=== PATIENT | female | born 1995 | race Two or more races ===

== ENCOUNTER 2017-06-25 19:18 | Emergency (ER) | payer MEDICAID ==
--- NOTE | 2017-06-25 20:09 | ER Document Report ---
ED Medical Screen (RME) - General TRAVEL OUTSIDE OF THE [place] IN LAST 30 DAYS: No <ANABELLA NAIR - Last Filed: 06/25/17 20:08> <QUINTEN ROMANO - Last Filed: 06/26/17 01:58> - General Chief Complaint: Vaginal Bleeding Stated Complaint: VAGINAL BLEEDING Time Seen by Provider: 06/25/17 20:02 Notes: Patient says she began what she believes is her. Today and put a tampon in. When she removed it, "there is something wrapped around the tampon" and she wants to know what it is. She has no symptoms. No fever. No abdominal pain. She is on control pills. She had her last regular cycle on May 02. She missed May, but this is not unusual for her while she is on the control pills. No other significant history. (ANABELLA NAIR) Patient is a 21-year-old female who presents emergency department complaining that she started her period and when she removed her tampon today she noticed a piece of tissue stuck around the tampon. patient admits that she recently had sexual intercourse with her boyfriend approximately 10 days ago and this was the first time since she had her daughter 9 months ago. She states that the tampon she is today was the first tampon she is used and she had an intercourse. Otherwise she denies any fever, chills, pelvic pain, discharge, vaginal irritation, vaginal pain. She denies any painful intercourse. She denies any nausea, vomiting, diarrhea, constipation. (QUINTEN ROMANO) - Related Data Allergies/Adverse Reactions: venom-honey bee [bee venom (honey bee)] Allergy (Verified 06/25/17 19:43) bee stings Allergy (Uncoded 06/25/17 19:49) Past Medical History - General Last Menstrual Period: 05-02-17 - Social History Chew tobacco use (# tins/day): No Frequency of alcohol use: None Drug Abuse: None Family history: None Renal/ Medical History: Denies: Hx Peritoneal Dialysis Past Surgical History: Reports: Hx Orthopedic Surgery - Immunizations Hx Diphtheria, Pertussis, Tetanus Vaccination: No History of Influenza Vaccine for 06/2017 - 11/2017 Season: No <ANABELLA NAIR - Last Filed: 06/25/17 20:08> Review of Systems - Review of Systems Constitutional: No symptoms reported Female Genitourinary: See HPI -: Yes All other systems reviewed and negative <QUINTEN ROMANO - Last Filed: 06/26/17 01:58> Physical Exam <ANABELLA NAIR - Last Filed: 06/25/17 20:08> <QUINTEN ROMANO - Last Filed: 06/26/17 01:58> - Vital signs Vitals: Temp Pulse Resp BP Pulse Ox 98.8 F 102 H 18 152/78 H 98 06/25/17 19:44 06/25/17 19:44 06/25/17 19:44 06/25/17 19:44 06/25/17 19:44 - Notes Notes: PHYSICAL EXAM GENERAL: Alert, interacts well. ABDOMEN: Soft, nondistended, nontender. No guarding, rebound, or rigidity.. Bowel sounds present in all 4 quadrants. FEMALE : tampon at the bedside shows evidence of Mucosal tissue measuring approximately 7 cm x 4 cm. Normal external exam. No evidence of lesions, lacerations, bruising or vesicles. Speculum exam normal cervix closed. No evidence of vaginal discharge with odor. No evidence of lesions. No vaginal bleeding. Bimanual exam normal no cervical motion tenderness. No adnexal mass or adnexal tenderness. EXTREMITIES: Moves all 4 extremities spontaneously. No edema, radial and dorsalis pedis pulses 2/4 bilaterally. No cyanosis. NEUROLOGICAL: Alert and oriented x4. Normal speech. PSYCH: Normal affect, normal mood. SKIN: Warm, dry, normal turgor. No rashes or lesions noted. (QUINTEN ROMANO) Course <ANABELLA NAIR - Last Filed: 06/25/17 20:08> <QUINTEN ROMANO - Last Filed: 06/26/17 01:58> - Re-evaluation Re-evalutation: 06/26/17 01:58 Patient is a 21-year-old female who is hemodynamically stable, no acute distress and afebrile. Presentation today is not concerning for any exsanguination, concerns for ectopic . Beta hCG was negative. Given the tissue is the main reason she came in today, she is only recently had vaginal penetration since her of her daughter it is possible this is tissue left over from her vaginal delivery urgently at this year. Patient educated on signs and symptoms indicating return to the emergency department otherwise to follow-up with her [employer] if she continues to find specimen like this on her tampons. (QUINTEN ROMANO) - Vital Signs Vital signs: Temp Pulse Resp BP Pulse Ox 98.3 F 86 16 125/74 98 06/25/17 21:19 06/25/17 21:19 06/25/17 21:19 06/25/17 21:19 06/25/17 21:19 Doctor's Discharge <ANABELLA NAIR - Last Filed: 06/25/17 20:08> <QUINTEN ROMANO - Last Filed: 06/26/17 01:58> - Discharge Clinical Impression: Vaginal bleeding Condition: Good Disposition: HOME, SELF-CARE Additional Instructions: VAGINAL BLEEDING: You are having an episode of abnormal bleeding. Causes of abnormal vaginal bleeding can include miscarriage or tubal , tumors such as cancer or benign fibroids, medication effects, or hormone imbalance. Testing can eliminate unsuspected , tumors, or infection as a cause. "Dysfunctional uterine bleeding" is due to hormone imbalance, and is especially common at times when the normal cycle is disturbed -- whether by recent , use of control pills or hormones, or impending menopause. If the bleeding is innocent, most commonly a short course of hormones is given to restore the uterus to normal. Sometimes, the normal menstrual cycle corrects itself naturally. Sometimes , brief hormone therapy, or even a D&C is required. Your physician will advise you. Treatment for anemia may be required if bleeding is severe. You should rest and avoid intercourse until the bleeding is controlled. Call the doctor or return for re-examination if you feel faint, have increasing pain, or have a major increase in the amount of bleeding. NORMAL EXAM AND WORKUP: At this time, except for vaginal bleeding, your examination and workup show no significant abnormality. No significant abnormal physical findings were noted. All laboratory, EKG, and imaging (x-ray, CT scans, ultrasound) studies that were ordered show no significant abnormality. Although your examination and all studies that were ordered showed no significant abnormal finding, there are no examinations and no studies that are 100% accurate. There is always the possibility that some abnormality could exist and not be detected with physical examination or within the limits and capabilities of laboratory and other studies. You should return or follow up as you were instructed on your visit today for further evaluation if your symptoms do not resolve. FOLLOW-UP CARE: If you have been referred to a physician for follow-up care, call the physician s office for an appointment as you were instructed or within the next two days. If you experience worsening or a significant change in your symptoms (very heavy bleeding with large clots of blood, passage of tissue, more severe abdominal / pelvic pain or cramping, feeling faint or severe weakness, fever, etc.), notify the physician immediately or return to the Emergency Department at any time for re-evaluation. OBSTETRIC-GYNECOLOGIC ([facility]-ARCHITECTURAL EXAMIN[facility]) [facility] [place]: [facility] [address] [place] [address] [phone] Referrals: AR GILBERT MD [ACTIVE STAFF] - Follow up in 1 week
[2017-06-25 21:26] VITALS: BP 125/74
[2017-06-25 22:44] LABS: CHLAM PCR NOT DETECTED (NOT DETECT)
== END 2017-06-25 22:09 | disposition home or self-care (01) ==
LOC: ER 19:18
DX: N93.8 Other specified abnormal uterine and vaginal bleeding (principal); Z79.3 Long term (current) use of hormonal contraceptives; Z91.030 Bee allergy status
CPT/HCPCS: 81025; 87210; 87491; 87591; 99284

== ENCOUNTER 2018-07-03 15:40 | Emergency (ER) | payer MEDICAID ==
[2018-07-03] MEDS ORDERED: METOCLOPRAMIDE HCL INJ/PF 10 MG/2 ML SDV IV ONE (16:24)
--- NOTE | 2018-07-03 16:24 | ER Document Report ---
ED Medical Screen (RME) - General Chief Complaint: Abdominal Pain Stated Complaint: VOMITING, ABDOMINAL PAIN Time Seen by Provider: 07/03/18 16:21 Mode of Arrival: Ambulatory Information source: Patient Notes: Patient is a 22-year-old female who presents with chief complaint of nausea with vomiting x3, decreased appetite, low abdominal pain and low back pain. Patient reports the abdominal pain is located in the right lower quadrant as well as the left upper quadrant. Patient denies any urinary symptoms to include dysuria, frequency or urgency. Patient reports nothing makes the pain in her abdomen worse or better although the pain is increased when she has a wave of nausea. Patient was sent here from [facility] where she had received 1 L of normal saline, 4 mg of Zofran IV as well as a CBC and a urinalysis. CBC reveals a white blood cell count of 17.9 urine was unremarkable. Exam: Tenderness to palpation to right lower quadrant, no guarding no rebound. I have greeted and performed a rapid initial assessment of this patient. A comprehensive ED assessment and evaluation of the patient, analysis of test results and completion of the medical decision making process will be conducted by additional ED providers. Dictation of this chart was performed using voice recognition software; therefore, there may be some unintended grammatical errors. TRAVEL OUTSIDE OF THE [place] IN LAST 30 DAYS: No - Related Data Allergies/Adverse Reactions: venom-honey bee [bee venom (honey bee)] Allergy (Verified 06/25/17 19:43) bee stings Allergy (Uncoded 06/25/17 19:49) Past Medical History - Social History Chew tobacco use (# tins/day): No Frequency of alcohol use: None Drug Abuse: None Family history: None Renal/ Medical History: Denies: Hx Peritoneal Dialysis Past Surgical History: Reports: Hx Orthopedic Surgery - right hand - Immunizations Hx Diphtheria, Pertussis, Tetanus Vaccination: No History of Influenza Vaccine for 06/2017 - 11/2017 Season: No Physical Exam - Vital signs Vitals: Temp Pulse Resp BP Pulse Ox 98.5 F 104 H 12 118/66 98 07/03/18 15:44 07/03/18 15:44 07/03/18 15:44 07/03/18 15:44 07/03/18 15:44 Course - Vital Signs Vital signs: Temp Pulse Resp BP Pulse Ox 98.5 F 104 H 12 118/66 98 07/03/18 15:44 07/03/18 15:44 07/03/18 15:44 07/03/18 15:44 07/03/18 15:44 Doctor's Discharge - Discharge Referrals: KIMBER AMAYA MD [Primary Care Provider] - Follow up as needed
[2018-07-03 17:06] LABS: HEMOGLOBIN 13.6 g/dL (12.0-15.5); MEAN CORPUSCULAR HEMOGLOBIN 27.9 pg (27.0-33.4); MEAN CORPUSCULAR HGB CONC 33.1 g/dL (32.0-36.0); MEAN CORPUSCULAR VOLUME 84 fl (80-97); PLATELET COUNT 288 10^3/uL (150-450); RED BLOOD COUNT 4.87 10^6/uL (3.72-5.28); WHITE BLOOD COUNT 15.5 10^3/uL (4.0-10.5)
[2018-07-03 17:11] LABS: APPEARANCE,URINE SLIGHTLY-CLOUDY; BILIRUBIN,URINE NEGATIVE (NEGATIVE); COLOR,URINE YELLOW; GLUCOSE, URINE NEGATIVE (NEGATIVE); KETONES,URINE 20 mg/dL (NEGATIVE); LEUKOCYTE ESTERASE,URINE NEGATIVE (NEGATIVE); NITRITE,URINE NEGATIVE (NEGATIVE); PROTEIN,URINE NEGATIVE (NEGATIVE); URINE SPECIFIC GRAVITY 1.028; UROBILINOGEN,URINE NEGATIVE mg/dL (<2.0)
[2018-07-03 17:21] LABS: ABSOLUTE LYMPHOCYTES# (MANUAL) 0.5 10^3/uL (0.5-4.7); ABSOLUTE MONOCYTES # (MANUAL) 0.2 10^3/uL (0.1-1.4); ABSOLUTE NEUTROPHILS# (MANUAL) 14.7 10^3/uL (1.7-8.2); BASOPHILS % (MANUAL) 1 % (0-2); EOSINOPHILS % (MANUAL) 0 % (0-6); LYMPHOCYTES % (MANUAL) 3 % (13-45); MONOCYTES % (MANUAL) 1 % (3-13); SEGMENTED NEUTROPHILS % (MAN) 95 % (42-78); TOTAL CELLS COUNTED 100
[2018-07-03 17:22] LABS: ALANINE AMINOTRANSFERASE 31 U/L (9-52); ALBUMIN 3.9 g/dL (3.5-5.0); ALKALINE PHOSPHATASE 58 U/L (38-126); ANION GAP 9 (5-19); ASPARTATE AMINO TRANSFERASE 22 U/L (14-36); BILIRUBIN,DIRECT 0.2 mg/dL (0.0-0.4); BILIRUBIN,TOTAL 0.6 mg/dL (0.2-1.3); BLOOD UREA NITROGEN 18 mg/dL (7-20); CALCIUM 8.4 mg/dL (8.4-10.2); CARBON DIOXIDE 23 mmol/L (22-30); CHLORIDE 105 mmol/L (98-107); GLUCOSE 126 mg/dL (75-110); POTASSIUM 4.7 mmol/L (3.6-5.0); SODIUM 136.7 mmol/L (137-145); TOTAL PROTEIN 6.6 g/dL (6.3-8.2)
[2018-07-03 17:24] LABS: ANISOCYTOSIS SLIGHT; HYPOCHROMASIA SLIGHT; OVALOCYTES SLIGHT; POIKILOCYTOSIS SLIGHT; TOXIC VACUOLATION PRESENT
[2018-07-03 17:25] LABS: PLATELET COMMENT ADEQUATE; PLATELET LARGE PRESENT
--- NOTE | 2018-07-03 19:04 | ER Document Report ---
ED GI/ - General Chief Complaint: Abdominal Pain Stated Complaint: VOMITING, ABDOMINAL PAIN Time Seen by Provider: 07/03/18 16:21 Mode of Arrival: Ambulatory Notes: Patient is a 22-year-old female who presents with chief complaint of nausea with vomiting x3, decreased appetite, low abdominal pain and low back pain. Patient reports the abdominal pain is located in the right lower quadrant as well as the left upper quadrant. Patient denies any urinary symptoms to include dysuria, frequency or urgency. Patient reports nothing makes the pain in her abdomen worse or better although the pain is increased when she has a wave of nausea. Patient was sent here from [facility] where she had received 1 L of normal saline, 4 mg of Zofran IV as well as a CBC and a urinalysis. CBC reveals a white blood cell count of 17.9 urine was unremarkable. TRAVEL OUTSIDE OF THE [place] IN LAST 30 DAYS: No - Related Data Allergies/Adverse Reactions: venom-honey bee [bee venom (honey bee)] Allergy (Verified 06/25/17 19:43) bee stings Allergy (Uncoded 06/25/17 19:49) Past Medical History - General Information source: Patient - Social History Smoking Status: Never Smoker Chew tobacco use (# tins/day): No Frequency of alcohol use: None Drug Abuse: None Family History: Reviewed & Not Pertinent Patient has suicidal ideation: No Patient has homicidal ideation: No - Medical History Medical History: Negative Renal/ Medical History: Denies: Hx Peritoneal Dialysis Past Surgical History: Reports: Hx Orthopedic Surgery - right hand - Immunizations Hx Diphtheria, Pertussis, Tetanus Vaccination: No Review of Systems - Review of Systems Gastrointestinal: Abdominal pain, Diarrhea, Nausea, Vomiting Physical Exam - Vital signs Vitals: Temp Pulse Resp BP Pulse Ox 98.5 F 104 H 12 118/66 98 07/03/18 15:44 07/03/18 15:44 07/03/18 15:44 07/03/18 15:44 07/03/18 15:44 - Notes Notes: PHYSICAL EXAMINATION: GENERAL: Well-appearing, well-nourished and in no acute distress. HEAD: Atraumatic, normocephalic. EYES: Pupils equal round and reactive to light, extraocular movements intact, conjunctiva are normal. ENT: Nares patent, oropharynx clear without exudates. Moist mucous membranes. NECK: Normal range of motion, supple without lymphadenopathy LUNGS: Breath sounds clear to auscultation bilaterally and equal. No wheezes rales or rhonchi. HEART: Regular rate and rhythm without murmurs ABDOMEN: Soft, nondistended abdomen. Mild generalized tenderness throughout. No guarding, no rebound. No masses appreciated. Female : No CVA tenderness Musculoskeletal: Normal range of motion, no pitting or edema. No cyanosis. NEUROLOGICAL: Cranial nerves grossly intact. Normal speech, normal gait. Normal sensory, motor exams PSYCH: Normal mood, normal affect. SKIN: Warm, Dry, normal turgor, no rashes or lesions noted. Course - Re-evaluation Re-evalutation: Patient with nonspecific leukocytosis, white blood count 15.5. Comprehensive metabolic panel and urinalysis are both unremarkable. Patient declines pelvic exam she states she has no abnormal discharge and no pelvic pain. Patient's repeat abdominal examination is benign. Her abdomen is soft, nontender, there is no guarding or rebound. Patient was given antiemetics and IV fluids. Patient has had no episodes of vomiting while in the department. Patient did have some tachycardia with a heart rate in the 120s however patient does report that she is anxious being here and is worried after [facility] told her she might need surgery. Patient was given additional 1 L normal saline bolus with resolved tachycardia. Patient is normotensive. I did discuss risks versus benefits of CAT scan of the abdomen and pelvis to evaluate for appendicitis. Considering patient's abdomen is currently soft and nontender the patient will be discharged home with a ED return precautions for appendicitis. Patient is in agreement with this plan of care and agrees to follow-up with her primary care provider or return to the emergency department if her condition worsens. - Vital Signs Vital signs: Temp Pulse Resp BP Pulse Ox 99.0 F 114 H 17 104/75 98 07/03/18 20:48 07/03/18 20:48 07/03/18 20:48 07/03/18 20:48 07/03/18 20:48 - Laboratory Result Diagrams: 07/03/18 16:45 07/03/18 16:45 Laboratory results interpreted by me: 07/03/18 07/03/18 07/03/18 16:45 16:45 16:45 WBC 15.5 H Seg Neuts % (Manual) 95 H Lymphocytes % (Manual) 3 L Monocytes % (Manual) 1 L Abs Neuts (Manual) 14.7 H Sodium 136.7 L Glucose 126 H Urine Ketones 20 H Discharge - Discharge Clinical Impression: Abdominal pain Qualifiers: Abdominal location: generalized Qualified Code(s): R10.84 - Generalized abdominal pain Nausea & vomiting Qualifiers: Vomiting type: unspecified Vomiting Intractability: non-intractable Qualified Code(s): R11.2 - Nausea with vomiting, unspecified Condition: Stable Disposition: HOME, SELF-CARE Additional Instructions: Abdominal Pain There are many causes of abdominal pain. Pain can mean a serious problem requiring surgery (such as appendicitis). It can also be an innocent problem that goes away on its own (such as a viral infection). Often, time must pass to determine the cause of pain. The physician does not feel that hospitalization is necessary, at present. Things may change within the next 24 hours. Call the doctor or come back for re- examination if any problems occur, such as: (1) Pain that becomes more severe, steady, or becomes concentrated in one specific area. Also, pain that is more severe with movement or coughing. (2) Vomiting that persists or becomes more frequent. (3) Blood in the vomitus, urine, or bowel movements. Blood in the stool may have a tarry or black appearance. (4) Shaking chills or fever greater than 100 degrees F. (5) The abdomen becomes more distended or swollen. (6) Bowel movements cease. (7) Failure to improve as expected. Observation for Appendicitis At this time, the abdominal pain does not seem to be appendicitis. Our next "test" will be passage of time. If you have early appendicitis, signs will appear to help us make the diagnosis. Most of the time, the pain goes away. In these cases, the pain is usually due to a virus in the lymph glands near the appendix, or due to an ovarian cyst or ovulation. Unless the pain is gone, you should come back for a recheck. This is usually done in 8 to 12 hours. Be sure you understand your follow-up instructions. Come back immediately if: (1) the pain becomes much more severe and sharply increases with movement or coughing, (2) vomiting becomes frequent, (3) there is blood in the vomit, urine, or bowel movements, (4) there are shaking chills or fever, or (5) the abdomen becomes more distended or swollen. As discussed please return to the emergency department if you develop worsening pain, increased vomiting, fever or any other symptom that is concerning to you. Please take the Zofran to stop the vomiting and if necessary take the Phenergan to stop the nausea if the Zofran is not working. Drink plenty of fluids to stay hydrated. Prescriptions: Ondansetron [Zofran Odt 4 mg Tablet] 1 - 2 tab PO Q4H PRN #15 tab.rapdis PRN Reason: For Nausea/Vomiting Promethazine HCl [Phenergan 25 mg Tablet] 1 - 2 tab PO Q6H PRN #15 tablet PRN Reason: Forms: Return to Work Referrals: KIMBER AMAYA MD [ACTIVE STAFF] - Follow up as needed
[2018-07-03] MEDS ORDERED: NORMAL SALINE 1000 ML 1,000 ML IV ONE (19:14)
[2018-07-03] MEDS ORDERED: KETOROLAC TROMETHAMINE INJ/PF 30 MG/1 ML SDV IV ONE (20:07)
[2018-07-03] MEDS ORDERED: ONDANSETRON ODT 4 MG TAB (6 TAB/ER DISP) PO PRN (20:10)
[2018-07-03 20:49] VITALS: BP 104/75
== END 2018-07-03 20:49 | disposition home or self-care (01) ==
LOC: ER 15:40
DX: R10.84 Generalized abdominal pain (principal); R11.2 Nausea with vomiting, unspecified; R63.0 Anorexia; M54.5 Low back pain; R10.31 Right lower quadrant pain; R10.12 Left upper quadrant pain
CPT/HCPCS: 99284; 96361; 96374; 96375; 36415; 87086; 83690; 85025; 81025; 87088; 80053; 81001; J1885; J2765; J7030